=== PATIENT | female | born 1960 | race Caucasian/White ===

== ENCOUNTER 2016-11-11 21:25 | Emergency (ER) | payer OTHER, MEDICARE ==
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
[2016-11-11] MEDS ORDERED: Triamcinolone Acetonide 0.1% Crm 15 GM Tube TOP SCH (22:45)
[2016-11-11 22:54] VITALS: BP 161/97
== END 2016-11-11 23:00 | disposition home or self-care (01) ==
LOC: KA.ED 21:25
DX: L30.8 Other specified dermatitis (principal); I87.2 Venous insufficiency (chronic) (peripheral); F17.210 Nicotine dependence, cigarettes, uncomplicated; N18.4 Chronic kidney disease, stage 4 (severe); R60.9 Edema, unspecified
CPT/HCPCS: 36415; 80048; 85027; 86140; 99284

== ENCOUNTER 2016-12-12 05:40 | Emergency (ER) | payer OTHER, MEDICARE ==
[2016-12-12 06:27] LABS: SODIUM,NA 124 mmol/L (136-145)
[2016-12-12 06:35] LABS: CHLORIDE,CL 89 mmol/L (98-115)
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
[2016-12-12] MEDS: Sodium Chloride 0.9% 1,000 ML IV SCH ×2 (07:33→08:39)
[2016-12-12 07:48] LABS: BASE EXCESS ARTERIAL -14 mmol/L (-2-3); BICARBONATE,ARTERIAL 13.8 mmol/L (22-26); O2 DELIVERY DEVICE ROOM AIR; O2 SATURATION ARTERIAL 93 % (95-98); PCO2 ARTERIAL 33 mmHG (35-45); PO2 ARTERIAL 79 mmHG (80-105)
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
[2016-12-12] MEDS ORDERED: Aspirin 81 MG Tab.Chew CHEW ONE (07:57)
[2016-12-12] MEDS ORDERED: Aspirin 81 MG Tab.Chew ONE (07:57)
[2016-12-12] MEDS ORDERED: Sodium Chloride 0.9% 1,000 ML IV SCH (08:45)
[2016-12-12] MEDS ORDERED: Heparin Sodium 5,000 Units/ML Vial IVPUSH ONE (09:14)
[2016-12-12] MEDS ORDERED: Heparin Sodium 5,000 Units/ML Vial ONE (09:16)
[2016-12-12] MEDS ORDERED: Heparin Sodium/D5W 250 ML ONE (09:16)
[2016-12-12 09:20] VITALS: BP 111/81
[2016-12-12] MEDS: Sodium Chloride 0.9% 5 ML Syringe FLUSH PRN ×3 (09:20→09:51)
[2016-12-12] MEDS ORDERED: Heparin Sodium/D5W 25,000 UNITS/250 ML BAG IV SCH ×2 (09:30→09:45)
== END 2016-12-12 09:48 ==
LOC: KA.ED 05:40
DX: I21.3 ST elevation (STEMI) myocardial infarction of unspecified site (principal); E11.65 Type 2 diabetes mellitus with hyperglycemia; I12.9 Hypertensive chronic kidney disease with stage 1 through stage 4 chronic kidney disease, or unspecified chronic kidney disease; N18.4 Chronic kidney disease, stage 4 (severe); E78.00 Pure hypercholesterolemia, unspecified; K21.9 Gastro-esophageal reflux disease without esophagitis; F41.9 Anxiety disorder, unspecified; F17.210 Nicotine dependence, cigarettes, uncomplicated; Z88.6 Allergy status to analgesic agent; Z88.1 Allergy status to other antibiotic agents; Z79.82 Long term (current) use of aspirin; Z79.899 Other long term (current) drug therapy
CPT/HCPCS: 36600; 71020; 80053; 81001; 82803; 82962; 83880; 84484; 85025; 93005; 96365; 96366; 96375; 99285; A9270; J1644; J1817; J7030; J7050

== ENCOUNTER 2017-01-03 19:22 | Observation (INO) | payer OTHER, MEDICARE ==
[2017-01-03] MEDS ORDERED: Sodium Chloride 0.9% 5 ML Syringe FLUSH PRN (19:37)
[2017-01-03] MEDS ORDERED: Sodium Chloride 0.9% 1,000 ML ONE (20:29)
[2017-01-03] MEDS: Sodium Chloride 0.9% 1,000 ML IV SCH (20:30)
[2017-01-03] MEDS ORDERED: Insulin Aspart 100 Units/ML 3 ML Pen ONE (20:31)
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
[2017-01-03] MEDS ORDERED: Acetaminophen/oxyCODONE 325-5 MG Tab PO PRN (21:11)
[2017-01-03] MEDS ORDERED: Non-Formulary Medication 1 Each (Rosuvastatin [Crestor] 40 MG) PO SCH (21:14)
[2017-01-03] MEDS ORDERED: CLONIDINE HCL 0.2 MG PO SCH (21:15)
[2017-01-03] MEDS ORDERED: hydrALAZINE 25 MG Tab PO SCH (21:15)
[2017-01-03] MEDS: Insulin Aspart 100 Units/ML 3 ML Pen SUBCUT ONE ×2 (21:59→23:05)
[2017-01-03] MEDS ORDERED: Rosuvastatin 10 MG Tab PO ONE (22:19)
[2017-01-03] MEDS ORDERED: Rosuvastatin 10 MG Tab ONE (22:19)
[2017-01-03] MEDS ORDERED: LORazepam 0.5 MG Tab ONE (22:20)
[2017-01-03] MEDS ORDERED: hydrALAZINE 50 MG Tab ONE (22:21)
[2017-01-03] MEDS: cloNIDine 0.1 MG Tab PO SCH (22:23)
[2017-01-03] MEDS: METOPROLOL TARTRATE 50 MG PO SCH (22:24)
[2017-01-03] MEDS: **PTOM** Mirtazapine 15 MG Tab PO SCH (22:25)
[2017-01-03] MEDS: LORazepam 0.5 MG Tab PO SCH (22:29)
[2017-01-03] MEDS: SODIUM BICARBONATE 325 MG PO SCH (22:31)
[2017-01-04] MEDS: Insulin Aspart 100 Units/ML 3 ML Pen SUBCUT ONE ×5 (00:04→04:01)
[2017-01-04] MEDS: **PTOM** Pantoprazole 40 MG Tab.CR PO SCH (06:11)
[2017-01-04] MEDS ORDERED: cloNIDine 0.1 MG Tab PO SCH ×3 (08:15→09:30)
[2017-01-04] MEDS ORDERED: hydrALAZINE 50 MG Tab PO SCH (09:00)
[2017-01-04] MEDS ORDERED: Fenofibrate 160 MG Tab PO SCH (09:00)
[2017-01-04] MEDS ORDERED: Non-Formulary Medication 1 Each (Amlodipine [Norvasc] 5 MG) PO SCH (09:00)
[2017-01-04] MEDS: VENLAFAXINE 150 MG PO SCH (09:26)
[2017-01-04] MEDS: LORazepam 0.5 MG Tab PO SCH ×2 (09:27→21:24)
[2017-01-04] MEDS: METOPROLOL TARTRATE 50 MG PO SCH ×2 (09:28→21:30)
[2017-01-04] MEDS: cloNIDine 0.1 MG Tab PO SCH (09:39)
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
[2017-01-04] MEDS: SODIUM BICARBONATE 325 MG PO SCH ×3 (10:00→21:31)
[2017-01-04] MEDS: FENOFIBRATE 160 MG PO SCH (10:00)
[2017-01-04] MEDS: Sodium Chloride 0.9% 1,000 ML IV SCH (10:01)
[2017-01-04] MEDS ORDERED: Sodium Chloride 0.9% 5 ML Syringe FLUSH PRN (11:25)
[2017-01-04] MEDS ORDERED: ROSUVASTATIN 40 MG PO SCH (21:00)
[2017-01-04] MEDS ORDERED: Rosuvastatin 10 MG Tab PO SCH (21:00)
[2017-01-04] MEDS: HYDRALAZINE 25 MG PO SCH (21:28)
[2017-01-04] MEDS: CLONIDINE 0.1 MG PO SCH (21:28)
[2017-01-04] MEDS: CLONIDINE 0.2 MG PO SCH (21:32)
[2017-01-04] MEDS: **PTOM** Mirtazapine 15 MG Tab PO SCH (21:33)
[2017-01-05] MEDS: **PTOM** Pantoprazole 40 MG Tab.CR PO SCH (06:33)
[2017-01-05 06:50] VITALS: BP 135/63
[2017-01-05] MEDS ORDERED: Aspirin 325 MG Tab.EC PO SCH (09:00)
[2017-01-05] MEDS: HYDRALAZINE 25 MG PO SCH (09:56)
[2017-01-05] MEDS: CLONIDINE 0.1 MG PO SCH (09:56)
[2017-01-05] MEDS: LORazepam 0.5 MG Tab PO SCH (09:56)
[2017-01-05] MEDS: VENLAFAXINE 150 MG PO SCH (09:57)
[2017-01-05] MEDS: FENOFIBRATE 160 MG PO SCH (09:58)
[2017-01-05] MEDS: CLONIDINE 0.2 MG PO SCH (09:58)
[2017-01-05] MEDS: METOPROLOL TARTRATE 50 MG PO SCH (09:58)
[2017-01-05] MEDS: SODIUM BICARBONATE 325 MG PO SCH (09:59)
--- NOTE | 2017-01-06 07:54 | DISCH ---
FINAL DIAGNOSES: 1. Severe hyperglycemia, profound on admission. Blood glucose 907 on admission, much improved. 2. Chronic kidney disease, stage 5, membranous glomerulonephritis, is receiving hemodialysis. 3. Hyperkalemia, resolved. 4. Hypervolemia, hyponatremia, hyperosmolar. Fluid restriction 1000 mL per day. Secondary chronic problems: Morbid obesity, anxiety with depression, nonobstructive coronary artery disease, essential hypertension, type 1 diabetic, venous insufficiency, chronic stasis dermatitis, and obstructive sleep apnea. HISTORY: This 56-year-old female with type 1 diabetes, who was recently hospitalized due to DKA, renal failure, and type 2 non-STEMI myocardial infarction. She was noted to have an elevated blood glucose of 907, and she came to the ED, and she subsequently was admitted for intensive insulin management and observation. The patient stated that she was in [facility] about 24 hours prior to being admitted. She was having an AV shunt placed in her left arm, and she stated that her insulin pump was off approximately 7 hours that day. She had taken her blood sugar when she left [facility] and it was approximately 250-270; however, after that she went and ate a [employer] sandwich, she started getting thirsty when she got home, so about 4 or 5 hours after she had left [facility], she rechecked her blood sugar and it was over her limit of 599. She subsequently came to the ED here and it was 907. She does have a basal insulin rate, NovoLog at 69 units per day in 7 different time rates. While in the ED, she was given 10 units of insulin and then placed on 7 units/hour over night. She started hemodialysis via a dual lumen right subclavian catheter approximately three weeks ago, and her last hemodialysis was two days prior to her being admitted; however, she did have it yesterday. Other than the patient's basal rate which is continual basal rate of 69 units/hour, she does give herself boluses of approximately 4 to 5 units per carb ratio, which is approximately 20 units each time she eats and she does eat several times a day. It appears her total insulin requirements are between 200 and 220. HOSPITAL COURSE: Hospital course went fairly well. She did receive insulin overnight 7 units/hour after the 10 units of insulin in the ED. She did quickly normalize, did have a slightly low hypoglycemic unawareness around 63 that morning; however, she never vomited. She continued to eat. We did send her to dialysis that morning. Around noon, she did very well. The problem that we had was that she was not voiding. She stated that ever since she had dialysis, this has much decreased; however, she did after dialysis start urinating quite significantly about 400 mL on one shift and fluids running in, isotonic saline overnight at 75 mL an hour. Her daily weight was monitored. She has not lost significant weight since starting dialysis; however, she came to the hospital at 277 and was discharged at 277, it actually had gone up a few pounds of 283, then back down to 277 after voiding and dialysis. She has slightly upper limits of potassium upon admission, however, that was normal on discharge. She had chloride 87, potassium 5.4. She has significant hyponatremia on admission at 123, it was much improved at 132 on discharge. White count 12.4, hemoglobin 10.0, hematocrit 30.5, RDW 16.7, calcium 8.3. Glucoses were monitored intensively every hour to two hours, and she did quite well. She never became hemodynamically unstable. She never had a cough or chest pain. Her blood pressure on discharge 135/63, weight 277.8, O2 sats 97% on room air, respiratory rate 18. She was given extensive education regarding maintaining her basal insulin and monitoring her blood sugar more frequently. MEDICATIONS: No changes on medications. DISPOSITION: The patient will be discharged home. She will follow with me next week. She does have an Endocrinology appointment scheduled, Dr. Ulloa, date to be determined. She is to continue with hemodialysis. I did notify her melting operator, Dr. Murrieta. She is aware that she was in the hospital and received dialysis. She is to monitor herself more frequently, notify me and Endocrinology if blood sugars over 400. She is continue with her basal rate. She may adjust her insulin carb ratio exchange as needed from 4-6 units per carb choice. Will be on a fluid restriction of 1000 mL per 24 hours. Monitor her weight, keep her left lower extremities elevated. I will see her next week. /[id number]/MODL
== END 2017-01-05 10:47 | disposition home or self-care (01) ==
LOC: KA.ED 19:22 → KA.MS 21:10
PROVIDERS: ADMIT Family Medicine; ATTEND Family Medicine
DX: R73.9 Hyperglycemia, unspecified (principal); I12.0 Hypertensive chronic kidney disease with stage 5 chronic kidney disease or end stage renal disease; E10.22 Type 1 diabetes mellitus with diabetic chronic kidney disease; N18.5 Chronic kidney disease, stage 5; Z99.2 Dependence on renal dialysis; E87.5 Hyperkalemia; E87.70 Fluid overload, unspecified; E87.1 Hypo-osmolality and hyponatremia; E87.0 Hyperosmolality and hypernatremia; E66.01 Morbid (severe) obesity due to excess calories; F41.8 Other specified anxiety disorders; G47.33 Obstructive sleep apnea (adult) (pediatric); E78.00 Pure hypercholesterolemia, unspecified; K21.9 Gastro-esophageal reflux disease without esophagitis; Z88.1 Allergy status to other antibiotic agents; Z88.8 Allergy status to other drugs, medicaments and biological substances; Z79.4 Long term (current) use of insulin; Z79.899 Other long term (current) drug therapy; Z79.82 Long term (current) use of aspirin; Z87.891 Personal history of nicotine dependence
CPT/HCPCS: 36415; 80048; 80053; 82947; 82962; 84132; 85027; 96361; 99284; A9270; G0378; J7030; 96360; 96372

== ENCOUNTER 2017-08-21 19:35 | Emergency (ER) | payer MEDICARE, OTHER ==
[2017-08-21] MEDS ORDERED: Diazepam 5 MG Tab PO ONE (20:32)
[2017-08-21] MEDS ORDERED: Sodium Chloride 0.9% 5 ML Syringe FLUSH PRN (20:34)
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
[2017-08-21] MEDS ORDERED: HYDROmorphone 1 MG/ML Syringe IVPUSH ONE (22:06)
[2017-08-21 22:47] VITALS: BP 111/57
== END 2017-08-21 23:10 ==
LOC: KA.ED 19:35
DX: I12.0 Hypertensive chronic kidney disease with stage 5 chronic kidney disease or end stage renal disease (principal); N18.6 End stage renal disease; K04.7 Periapical abscess without sinus; E11.65 Type 2 diabetes mellitus with hyperglycemia; E78.00 Pure hypercholesterolemia, unspecified; E11.22 Type 2 diabetes mellitus with diabetic chronic kidney disease; Z88.8 Allergy status to other drugs, medicaments and biological substances; Z79.82 Long term (current) use of aspirin; Z79.899 Other long term (current) drug therapy; Z87.891 Personal history of nicotine dependence; Z79.4 Long term (current) use of insulin
CPT/HCPCS: 70486; 80053; 84484; 85025; 87804; 93005; 96374; 99285; A9270-GY; J1170

== ENCOUNTER 2017-08-30 07:50 | Emergency (ER) | payer OTHER, MEDICARE ==
[2017-08-30] MEDS ORDERED: Sodium Chloride 0.9% 5 ML Syringe FLUSH PRN (08:28)
[2017-08-30] MEDS ORDERED: LORazepam 2 MG/ML MDV IVPUSH ONE (08:34)
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
[2017-08-30 09:03] VITALS: BP 122/85
== END 2017-08-30 09:30 | disposition home or self-care (01) ==
LOC: KA.ED 07:50
DX: I12.0 Hypertensive chronic kidney disease with stage 5 chronic kidney disease or end stage renal disease (principal); N18.6 End stage renal disease; E11.22 Type 2 diabetes mellitus with diabetic chronic kidney disease; E78.00 Pure hypercholesterolemia, unspecified; K21.9 Gastro-esophageal reflux disease without esophagitis; Z79.01 Long term (current) use of anticoagulants; Z79.899 Other long term (current) drug therapy; Z88.8 Allergy status to other drugs, medicaments and biological substances; Z88.1 Allergy status to other antibiotic agents; Z87.891 Personal history of nicotine dependence
CPT/HCPCS: 80053; 85025; 85610; 96374; 99283; J2060

== ENCOUNTER 2018-03-08 19:33 | Observation (INO) | payer OTHER, MEDICARE ==
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
[2018-03-08] MEDS ORDERED: Sodium Chloride 0.9% 500 ML IV SCH (20:30)
[2018-03-08 21:26] LABS: ANION GAP 12.7 mmol/L (5-15)
[2018-03-08] MEDS ORDERED: Sodium Chloride 0.9% 1,000 ML IV SCH (21:45)
[2018-03-08] MEDS ORDERED: LORazepam 0.5 MG Tab ONE (22:42)
[2018-03-08] MEDS: LORazepam 0.5 MG Tab PO SCH (22:50)
[2018-03-08] MEDS ORDERED: atorvaSTATin 40 MG Tab PO SCH (23:00)
[2018-03-08] MEDS ORDERED: Mirtazapine 15 MG Tab PO SCH (23:00)
[2018-03-08] MEDS ORDERED: EPINEPHrine 1:10,000 1 MG/10 ML Syringe IVPUSH PRN (23:03)
[2018-03-08] MEDS ORDERED: Lidocaine 2% 100 MG/5 ML Syringe IVPUSH PRN (23:03)
[2018-03-08] MEDS ORDERED: Nitroglycerin 0.4 MG Tab.SL SL PRN (23:03)
[2018-03-08] MEDS ORDERED: Atropine 0.1 MG/ML 10 ML Syringe IVPUSH PRN (23:03)
[2018-03-09 07:51] LABS: ANION GAP 20.1 mmol/L (5-15)
[2018-03-09] MEDS ORDERED: Non-Formulary Medication 1 Each (Atorvastatin [Lipitor] 20 MG) PO SCH (09:00)
[2018-03-09] MEDS ORDERED: Warfarin 5 MG Tab PO SCH ×2 (09:00→18:00)
[2018-03-09] MEDS: LORazepam 0.5 MG Tab PO SCH (09:37)
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
[2018-03-09] MEDS ORDERED: Allopurinol 100 MG Tab PO SCH (11:15)
[2018-03-09] MEDS ORDERED: Pantoprazole 40 MG Tab.CR PO SCH (11:30)
[2018-03-09] MEDS ORDERED: Levothyroxine 25 MCG Tab PO SCH (11:30)
[2018-03-09] MEDS: Sertraline 50 MG Tab PO SCH ×2 (11:41→11:42)
[2018-03-09] MEDS ORDERED: LORazepam 0.5 MG Tab PO SCH (12:00)
[2018-03-09] MEDS ORDERED: Calcium Acetate 667 MG Cap PO SCH ×2 (12:00→13:30)
[2018-03-09] MEDS ORDERED: Metoprolol Succinate 25 MG Tab.ER PO SCH (13:15)
[2018-03-09] MEDS ORDERED: Midodrine 5 MG Tab PO SCH (13:15)
[2018-03-09 13:29] VITALS: BP 100/45
[2018-03-09] MEDS ORDERED: Calcium Acetate 667 MG Cap PO PRN (14:51)
[2018-03-10] MEDS ORDERED: Ergocalciferol (Vitamin D2) 50,000 Unit Cap PO SCH (09:00)
[2018-03-10] MEDS ORDERED: Warfarin 2.5 MG Tab PO SCH (18:00)
== END 2018-03-09 15:30 ==
LOC: KA.ED 19:33 → KA.MS 21:40
PROVIDERS: ADMIT Physician Assistant Medical; ATTEND Family Medicine
DX: I21.4 Non-ST elevation (NSTEMI) myocardial infarction (principal); I95.9 Hypotension, unspecified; E87.70 Fluid overload, unspecified; I45.10 Unspecified right bundle-branch block; I12.0 Hypertensive chronic kidney disease with stage 5 chronic kidney disease or end stage renal disease; N18.6 End stage renal disease; D63.1 Anemia in chronic kidney disease; Z99.2 Dependence on renal dialysis; E10.22 Type 1 diabetes mellitus with diabetic chronic kidney disease; E66.9 Obesity, unspecified; I25.2 Old myocardial infarction; E78.00 Pure hypercholesterolemia, unspecified; G47.30 Sleep apnea, unspecified; K21.9 Gastro-esophageal reflux disease without esophagitis; F32.9 Major depressive disorder, single episode, unspecified; F41.9 Anxiety disorder, unspecified; E78.1 Pure hyperglyceridemia; G47.31 Primary central sleep apnea; I87.2 Venous insufficiency (chronic) (peripheral); Z87.891 Personal history of nicotine dependence; Z79.4 Long term (current) use of insulin; Z79.899 Other long term (current) drug therapy; Z88.1 Allergy status to other antibiotic agents; Z88.8 Allergy status to other drugs, medicaments and biological substances; Z96.41 Presence of insulin pump (external) (internal); Z99.89 Dependence on other enabling machines and devices
CPT/HCPCS: 36415; 80048; 80053; 82550; 82553; 82962; 84484; 85025; 85610; 85730; 93005; 96360; 96361; 99284; A9270; G0378; J7030; J7040

== ENCOUNTER 2018-03-16 16:23 | Observation (INO) | payer OTHER, MEDICARE ==
[2018-03-16] MEDS ORDERED: Atropine 0.1 MG/ML 10 ML Syringe IVPUSH PRN (16:33)
[2018-03-16] MEDS ORDERED: Lidocaine 2% 100 MG/5 ML Syringe IVPUSH PRN (16:33)
[2018-03-16] MEDS ORDERED: Nitroglycerin 0.4 MG Tab.SL SL PRN (16:33)
[2018-03-16] MEDS ORDERED: EPINEPHrine 1:10,000 1 MG/10 ML Syringe IVPUSH PRN (16:33)
[2018-03-16] MEDS ORDERED: Sodium Chloride 0.9% 250 ML IV SCH (16:45)
[2018-03-16 17:53] LABS: ANION GAP 15.7 mmol/L (5-15); CHLORIDE,CL 91 mmol/L (98-115); SODIUM,NA 134 mmol/L (136-145)
[2018-03-16] MEDS ORDERED: Warfarin 5 MG Tab PO SCH (18:00)
[2018-03-16] MEDS ORDERED: CALCIUM ACETATE 667 MG PO SCH (18:27)
[2018-03-16] MEDS ORDERED: CALCIUM ACETATE 667 MG PO PRN (19:56)
[2018-03-16] MEDS ORDERED: [UNRECOGNIZED DRUG - OTHER] TOP PRN (19:56)
[2018-03-16] MEDS ORDERED: Chlorhexidine Gluconate 0.12% Oral Rinse 473 ML Bottle MUCMEM PRN (20:30)
[2018-03-16] MEDS ORDERED: Mirtazapine 15 MG Tab PO SCH (21:00)
[2018-03-16] MEDS: LORazepam 0.5 MG Tab PO SCH (22:02)
[2018-03-17 06:30] VITALS: BP 120/62
[2018-03-17] MEDS ORDERED: Levothyroxine 25 MCG Tab PO SCH (07:30)
[2018-03-17] MEDS ORDERED: Pantoprazole 40 MG Tab.CR PO SCH (07:30)
[2018-03-17] MEDS: LORazepam 0.5 MG Tab PO SCH (07:50)
[2018-03-17] MEDS ORDERED: Calcium Acetate 667 MG Cap PO SCH ×2 (08:00)
[2018-03-17] MEDS ORDERED: Fenofibrate 160 MG Tab PO SCH (09:00)
[2018-03-17] MEDS ORDERED: Ergocalciferol (Vitamin D2) 50,000 Unit Cap PO SCH (09:00)
[2018-03-17] MEDS ORDERED: atorvaSTATin 10 MG Tab PO SCH (09:00)
[2018-03-17] MEDS ORDERED: Allopurinol 100 MG Tab PO SCH (09:00)
[2018-03-17] MEDS ORDERED: Amiodarone 200 MG Tab PO SCH (09:00)
[2018-03-17] MEDS ORDERED: Sertraline 50 MG Tab PO SCH (12:00)
[2018-03-17] MEDS ORDERED: Metoprolol Succinate 25 MG Tab.ER PO SCH (12:00)
[2018-03-17] MEDS ORDERED: Warfarin 2.5 MG Tab PO SCH (18:00)
--- NOTE | 2018-03-19 08:41 | DISCH ---
ADMITTING DIAGNOSIS: Hypotensive episode after dialysis. DISCHARGE DIAGNOSIS: Hemodynamically stable at this time. BRIEF HISTORY AND ESSENTIAL PHYSICAL FINDINGS: The patient has a long history of dialysis. She was usually has some p.r.n. orders of midodrine. She had ran her dialysis at the dialysis center. After dialysis her blood pressure was in the 140s systolic and the nursing staff had discharged her home. She went home. She began feeling a little bit lightheaded. She checked her blood pressure at home, it was low in the 70 systolic, so her son brought her into the clinic. At that time, she was given some IV fluids. Her blood pressure still was on the low side, so the patient was admitted to the hospital for overnight observation. She did receive a 250 L of normal saline bolus here at the hospital. The patient's blood pressure since she has been at the hospital has been well within limits 102/60, 110/78, 112/68, 115/72, and this morning now before discharge, her blood pressure is 120/62, pulse 96. SIGNIFICANT LABS XRAYS AND CONSULTATION FINDINGS: The patient's lab work that was obtained here at the hospital: CBC shows white count within normal range at 6.87, hemoglobin 10.8. The patient's INR this morning here in the hospital was at 2.0. The patient's chemistry panel that was obtained upon admission: Potassium within normal range at 3.3, sodium is 134, chloride 91, BUN 30, creatinine 5.45, GFR is 8, calcium 7.7. AST 58, alkaline phosphatase 124. Troponin was negative. These are around the patient's baseline. No x-rays were taken. COURSE IN HOSPITAL WITH COMPLICATIONS IF ANY: The patient did not have any episodes of lightheadedness or dizziness, any chest pain or shortness of breath while she was in the hospital. Her blood pressure was well maintained, very stable, and slightly improved. CONDITION TREATMENT AND FINAL DISPOSITION ON DISCHARGE AND PROGNOSIS: Impression: 1. Hypotensive episode after dialysis. Plan: I am going to send the patient home with a bottle of her own midodrine. I am going to have her take 5 mg of midodrine 30 minutes prior to her going to the dialysis center. They do have standing orders for midodrine during her run while she is there. I want her to take some prior to the dialysis run to prevent hypotensive episodes further. Chronic conditions: 2. History of gout. Continue with allopurinol 100 mg daily. 3. History of tachycardia. Plan: Continue with metoprolol succinate 12.5 mg daily along with amiodarone 200 mg daily. 4. History of hyperlipidemia. Plan: Continue with atorvastatin 20 mg daily along with fenofibrate 160 mg daily. 5. History of hypothyroidism. Plan: Continue with levothyroxine 50 mcg daily. 6. History of insomnia. Plan: Continue with Remeron 30 mg at bedtime. 7. History of gastroesophageal reflux disease. Plan: Continue with Protonix 40 mg in the morning. 8. History of depression. Plan: Continue with Zoloft 150 mg daily. 9. History of long-term use of anticoagulation therapy. Plan: Continue with Coumadin as ordered. Her INR this morning was on the low side but within therapeutic range at 2.0. OVERALL PLAN: The patient will follow up with Shorty Barrett in clinic on of next week. /[id number]/MODL MTDD
[2018-03-19] MEDS ORDERED: Warfarin 5 MG Tab PO SCH (18:00)
== END 2018-03-17 11:00 | disposition home or self-care (01) ==
LOC: KA.MS 16:24
PROVIDERS: ADMIT Nurse Practitioner Family; ATTEND Nurse Practitioner Family
DX: I95.3 Hypotension of hemodialysis (principal); I12.0 Hypertensive chronic kidney disease with stage 5 chronic kidney disease or end stage renal disease; E10.22 Type 1 diabetes mellitus with diabetic chronic kidney disease; N18.6 End stage renal disease; D63.1 Anemia in chronic kidney disease; Z99.2 Dependence on renal dialysis; Z96.41 Presence of insulin pump (external) (internal); Z79.4 Long term (current) use of insulin; E66.01 Morbid (severe) obesity due to excess calories; Z68.42 Body mass index [BMI] 45.0-49.9, adult; I48.2 Chronic atrial fibrillation; Z79.01 Long term (current) use of anticoagulants; M10.9 Gout, unspecified; E78.5 Hyperlipidemia, unspecified; E03.9 Hypothyroidism, unspecified; G47.00 Insomnia, unspecified; G47.33 Obstructive sleep apnea (adult) (pediatric); F33.1 Major depressive disorder, recurrent, moderate; R00.0 Tachycardia, unspecified; F41.9 Anxiety disorder, unspecified; Z79.82 Long term (current) use of aspirin; Z79.899 Other long term (current) drug therapy
CPT/HCPCS: 36415; 80053; 82962; 84484; 85025; 85610; 96360; A9270-GY; G0378; G0379; J7050

== ENCOUNTER 2020-02-09 12:44 | Emergency (ER) | payer OTHER, MEDICARE ==
[2020-02-09 13:04] VITALS: BP 96/50; PULSE 72
[2020-02-09] MEDS ORDERED: Lidocaine 1% 20 ML MDV INJECT ONE (13:19)
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
[2020-02-09] MEDS ORDERED: Lidocaine 2% 5 ML SDV ONE (13:32)
[2020-02-09] MEDS ORDERED: Lidocaine 2% 5 ML SDV INJECT ONE (14:30)
[2020-02-09] MEDS ORDERED: Diphtheria,Pertussis(Acell),Tetanus Vaccine 0.5 ML SDV IM ONE (14:37)
[2020-02-09] MEDS ORDERED: Clindamycin HCl 150 MG Cap PO ONE (14:39)
== END 2020-02-09 15:05 | disposition home or self-care (01) ==
LOC: KA.ED 12:44
DX: S81.811A Laceration without foreign body, right lower leg, initial encounter (principal); I12.0 Hypertensive chronic kidney disease with stage 5 chronic kidney disease or end stage renal disease; E11.22 Type 2 diabetes mellitus with diabetic chronic kidney disease; N18.6 End stage renal disease; Z99.2 Dependence on renal dialysis; E78.00 Pure hypercholesterolemia, unspecified; I25.2 Old myocardial infarction; K21.9 Gastro-esophageal reflux disease without esophagitis; F41.9 Anxiety disorder, unspecified; F17.210 Nicotine dependence, cigarettes, uncomplicated; Z79.01 Long term (current) use of anticoagulants; Z23 Encounter for immunization; Z88.8 Allergy status to other drugs, medicaments and biological substances; Z79.899 Other long term (current) drug therapy; W22.8XXA Striking against or struck by other objects, initial encounter
CPT/HCPCS: 12002; 90471; 90715; 99282-25; 99283; A9270-GY; J2001

== ENCOUNTER 2020-04-20 20:08 | Emergency (ER) | payer MEDICARE, OTHER ==
[2020-04-20 21:17] VITALS: BP 116/63; PULSE 64
[2020-04-20] MEDS: Lidocaine 1% 20 ML MDV INJECT ONE (21:28)
[2020-04-20] MEDS: Lidocaine 1% 20 ML MDV ONE (21:28)
[2020-04-20] MEDS: Bacitracin/Neomycin/Polymyxin B Oint 28.4 GM Tube TOP ONE (21:35)
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
[2020-04-20] MEDS: Bacitracin/Neomycin/Polymyxin B Oint 0.9 GM U/D Packet ONE (22:14)
== END 2020-04-20 22:00 | disposition home or self-care (01) ==
LOC: KA.ED 20:08
DX: S81.811A Laceration without foreign body, right lower leg, initial encounter (principal); E78.00 Pure hypercholesterolemia, unspecified; I25.2 Old myocardial infarction; K21.9 Gastro-esophageal reflux disease without esophagitis; I12.9 Hypertensive chronic kidney disease with stage 1 through stage 4 chronic kidney disease, or unspecified chronic kidney disease; N18.9 Chronic kidney disease, unspecified; E11.22 Type 2 diabetes mellitus with diabetic chronic kidney disease; F17.210 Nicotine dependence, cigarettes, uncomplicated; F41.9 Anxiety disorder, unspecified; Z88.8 Allergy status to other drugs, medicaments and biological substances; Z88.1 Allergy status to other antibiotic agents; Z79.899 Other long term (current) drug therapy; Z99.2 Dependence on renal dialysis; Z79.01 Long term (current) use of anticoagulants; W19.XXXA Unspecified fall, initial encounter; Y92.009 Unspecified place in unspecified non-institutional (private) residence as the place of occurrence of the external cause
CPT/HCPCS: 12004; 12015; 99282-25; 99283; J2001